=== PATIENT | female | born 1985 | race Two or more races ===

== ENCOUNTER 2023-12-11 11:28 | Emergency (ER) | payer MEDICAID ==
[~2023-12-11] VITALS: Ht 160 cm; Wt 78.1 kg
[2023-12-11 12:52] VITALS: BP 120/72; PULSE 76; RESP 17; TEMP 98.2; O2SAT 98
[2023-12-11] MEDS ORDERED: ACET-1881 PO (13:05)
[2023-12-11] MEDS ORDERED: PSEU240T PO (13:05)
[2023-12-11] MEDS ORDERED: CIPR1SUS8 OT (13:05)
[2023-12-11] MEDS ORDERED: FLUT1SPR5 (13:05)
[2023-12-11] MEDS ORDERED: AUG875T PO (13:05)
== END 2023-12-11 13:12 | disposition home or self-care (01) ==
LOC: ER 11:28
DX: J01.90 Acute sinusitis, unspecified (principal); H92.03 Otalgia, bilateral; Z90.89 Acquired absence of other organs; Z79.899 Other long term (current) drug therapy; Z88.2 Allergy status to sulfonamides